=== PATIENT | male | born 1965 | race Caucasian/White ===

== ENCOUNTER 2024-10-04 13:02 | Emergency (ER) | payer OTHER, SELFPAY ==
[2024-10-04 13:06] VITALS: BP 133/96
[2024-10-04 13:10] VITALS: BP 132/96
[2024-10-04 14:00] VITALS: BP 126/92
[2024-10-04 14:03] VITALS: BP 130/91
[2024-10-04] MEDS: NSS 1000 IV (14:16)
--- NOTE | 2024-10-04 14:16 | ED.GENMED ---
History of Present Illness
<RUBY Bergeron - Last Filed: 10/04/24 17:48>
General
Chief Complaint: Cold/Flu/URI Symptoms
Source: patient and ambulance crew
Exam Limitations: none
Time Seen by Provider: 10/04/24 13:08
Nursing documentation reviewed up to this point in time: agreed with
History of Present Illness
History of Present Illness:
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 He tells me they thought he was' off.' He does report he was late to class today and may not have set his alarm. He tells me they were not
sure if he was under the influence. He reports he drank a gifty last night. He does drink alcohol every other night and admits to drinking scotch when he does.
He complains of feeling very tired but has no other physical complaints. He was hospitalized in [place] September 26 to July 29 after syncope /GI bleed. He reports he had 3 units of blood at the time and he believes his discharge hemoglobin
was 9.6. He was told the GI bleed was caused from stress in combination of steroids which she takes for neuropathy
Patient denies any dark or black stools. He denies any abdominal pain chest pain fever chills.
Patient is not on chronic narcotics. He does not smoke.
Review of Systems
<RUBY Bergeron - Last Filed: 10/04/24 17:48>
Review of Systems
Allergies reviewed?: Yes
All Other Systems: ROS reviewed and negative except as documented in HPI and ROS
Constitutional: Reports fatigue; Denies fever or chills
Respiratory: Reports no symptoms
Cardiac: Reports no symptoms
ABD/GI: Reports no symptoms
: Reports no symptoms
Musculoskeletal: Reports no symptoms
Neurological: Reports no symptoms
Endocrine: Reports no symptoms
Hematologic/Lymphatic: Reports no symptoms
Psychiatric: Reports no symptoms
Phy Exam
<RUBY Bergeron - Last Filed: 10/04/24 17:48>
General Physical Exam
General Presentation: no apparent distress
General age: appears stated age
General Skin: warm and dry
General Habitus: normal
General Mental: alert
General Hydration: appears well hydrated
ENT Exam
ENT Exam: EOMI and neck supple
Cardiovascular Exam
Cardiovascular Exam: regular rate/rhythm, no murmur and normal peripheral pulses
Pulmonary Exam
Pulmonary Exam: lungs clear and no respiratory distress
Neurological Exam
Neurological Exam: alert, oriented x3, no motor deficits and no sensory deficits
Dulce Coma Scale
Eye Opening: Spontaneous
Verbal Response: Oriented
Motor Response: Obeys Commands
GCS Total Score: 15
Cerebellar
Cerebellar Function: normal finger to nose
Musculoskeletal Exam
Musculoskeletal Exam: full ROM
Skin Exam
Skin Exam: normal color and warm/dry
Psychiatric Exam
Psychiatric Exam: normal mood/affect
Course
<RUBY Bergeron - Last Filed: 10/04/24 17:48>
Orders/Labs/Results
Orders:
Orders
10/04/24 14:00
0.9% Sodium Chloride 1000 ml [Nss] 1,000 ml IV BOLUS
10/04/24 14:05
Alcohol Urgent
Complete Blood Count/With Diff Urgent
Comprehensive Metabolic Panel Urgent
Lipase Urgent
TSH Reflex To Free T4 Urgent
Comment: ADD ON
Vitamin D, 25-Oh Urgent
Influenza A+B Rapid Molecular Urgent
JIMI Source: Nasal Swab
Specimen Description:
10/04/24 14:06
COVID-19 Antigen Urgent
Source: Nasal Swab
10/04/24 14:53
Urinalysis Reflex To Culture Urgent
Date Specimen was Collected: 10/04/24
Time Specimen was Collected: 14:00
10/04/24 15:06
Calcium Gluconate 1,000 mg IV NOW STA
10/04/24 15:07
Add On- LAB Urgent
Tests Added?: tsh w/ reflexive t4
10/04/24 15:19
Add On- LAB Urgent
Tests Added?: Vitamin D level
Abnormal Lab Results
10/04/24
14:05
RBC 3.15 L 10^6/uL
(4.70-6.10)
Hgb 10.2 L g/dL
(13.0-18.0)
Hct 29.7 L %
(39.0-52.0)
MCV 94.3 H fL
(80.0-94.0)
MCH 32.4 H pg
(27.0-31.0)
RDW 15.9 H %
(11.5-14.5)
Abs Immat Gran (auto) 0.1 H 10^3/uL
(0-0.05)
Absolute Lymphs (auto) 0.7 L 10^3/uL
(1.2-3.4)
Immature Gran % 1.4 H %
(0-0.5)
Neutrophils % 79.1 H %
(42.2-75.2)
Lymphocytes % 9.7 L %
(20.5-51.1)
Chloride 108 H mmol/L
(98-107)
Calcium 6.8 L* mg/dl
(8.4-10.2)
ALT 52 H U/L
(0-50)
Total Protein 5.0 L g/dl
(6.3-8.2)
Albumin 2.9 L g/dl
(3.5-5.0)
Vitamin D 25-Hydroxy 20.3 L ng/mL
(30-80)
10/04/24 14:05
10/04/24 14:05
Vital Signs
Initial and Last Documented VS:
Initial Vital Signs
Pulse Resp BP Pulse Ox
102 15 133/96 99
10/04/24 13:06 10/04/24 13:06 10/04/24 13:06 10/04/24 13:06
Last Documented Vital Signs
Temp Pulse Resp BP Pulse Ox
99.5 F 81 16 116/79 97
10/04/24 13:10 10/04/24 16:15 10/04/24 16:15 10/04/24 16:00 10/04/24 16:15
Shipfitter Helper consulted with Physician
Shipfitter Helper consulted with physician?: Yes
Name of Physician Consulted: DR Walters
<Rosibel Walters, DO - Last Filed: 10/04/24 15:50>
Orders/Labs/Results
Orders:
Orders
10/04/24 14:00
0.9% Sodium Chloride 1000 ml [Nss] 1,000 ml IV BOLUS
10/04/24 14:05
Alcohol Urgent
Complete Blood Count/With Diff Urgent
Comprehensive Metabolic Panel Urgent
Lipase Urgent
TSH Reflex To Free T4 Urgent
Comment: ADD ON
Vitamin D, 25-Oh Urgent
Influenza A+B Rapid Molecular Urgent
JIMI Source: Nasal Swab
Specimen Description:
10/04/24 14:06
COVID-19 Antigen Urgent
Source: Nasal Swab
10/04/24 14:53
Urinalysis Reflex To Culture Urgent
Date Specimen was Collected: 10/04/24
Time Specimen was Collected: 14:00
10/04/24 15:06
Calcium Gluconate 1,000 mg IV NOW STA
10/04/24 15:07
Add On- LAB Urgent
Tests Added?: tsh w/ reflexive t4
10/04/24 15:19
Add On- LAB Urgent
Tests Added?: Vitamin D level
Abnormal Lab Results
10/04/24
14:05
RBC 3.15 L 10^6/uL
(4.70-6.10)
Hgb 10.2 L g/dL
(13.0-18.0)
Hct 29.7 L %
(39.0-52.0)
MCV 94.3 H fL
(80.0-94.0)
MCH 32.4 H pg
(27.0-31.0)
RDW 15.9 H %
(11.5-14.5)
Abs Immat Gran (auto) 0.1 H 10^3/uL
(0-0.05)
Absolute Lymphs (auto) 0.7 L 10^3/uL
(1.2-3.4)
Immature Gran % 1.4 H %
(0-0.5)
Neutrophils % 79.1 H %
(42.2-75.2)
Lymphocytes % 9.7 L %
(20.5-51.1)
Chloride 108 H mmol/L
(98-107)
Calcium 6.8 L* mg/dl
(8.4-10.2)
ALT 52 H U/L
(0-50)
Total Protein 5.0 L g/dl
(6.3-8.2)
Albumin 2.9 L g/dl
(3.5-5.0)
Vitamin D 25-Hydroxy 20.3 L ng/mL
(30-80)
10/04/24 14:05
10/04/24 14:05
Vital Signs
Initial and Last Documented VS:
Initial Vital Signs
Pulse Resp BP Pulse Ox
102 15 133/96 99
10/04/24 13:06 10/04/24 13:06 10/04/24 13:06 10/04/24 13:06
Last Documented Vital Signs
Temp Pulse Resp BP Pulse Ox
99.5 F 81 16 116/79 97
10/04/24 13:10 10/04/24 16:15 10/04/24 16:15 10/04/24 16:00 10/04/24 16:15
<RUBY Bergeron - Last Filed: 10/04/24 17:48>
MDM/Problems Addressed
MDM/Problems Addressed:
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 He reports staff reported that he seemed to be acting off patient presents awake alert no acute distress he
was recently admitted to the [facility] the end of August discharge September 28 for syncope related to GI bleed(it was thought caused by stress and steroid combination).
Patient however d normal at 7.0. He denies any black or dark stools. He denies any recent fever or chills. He simply feels tired. He presents awake alert no acute distress temp is 99.5. He denies any recent cough cold symptoms. His white count
is 10.2. He has no complaints of headache he has a normal neurologic exam no meningismus nontoxic-appearing.
Chemistry reviewed show normal kidney function low calcium however at 6.8 he was told that in the past his vitamin D level was low. This was added on, his albumin is also low. His lipase is normal his UA is negative.
He felt that maybe they thought he was under the influence of something but he denies any alcohol use today. He does drink every other day and drank gifty last night at dinner. His alcohol level is less than 10. Is negative for COVID-negative
for flu. He is awake alert with no neurological deficits.
Pt w/ stable VS. Evaluated by ED physician will check thyroid and plan to d/c home
Thyroid studies normal vitamin D is low at 20.3 along with his calcium as discussed above. However patient safe to discharge home with outpatient follow-up with family doctor. He is stable in no acute distress.
Chronic conditions affecting care:
History of recent GI bleed with anemia history of salivary cancer
<RUBY Bergeron - Last Filed: 10/04/24 17:48>
*Pulse Oximetry
Patient hypoxic: no
*Critical Care Note
Total Time (30-74mins, 75-104mins- exclusive of procedures): Not Applicable
ED Attending Note
<RUBY Bergeron - Last Filed: 10/04/24 17:48>
-
Portions of this chart may have been created with voice recognition software.� Occasional wrong word or��sound alike� substitutions may have occurred due to the inherent limitations of voice recognition software.
<Rosibel Walters DO - Last Filed: 10/04/24 15:50>
ED Attending Note
Patient seen and examined by attending physician: Yes
I performed the substantive portion of visit, reviewed & personally made and approve the management plan that is documented in note by myself or NIEVES.: Yes
I performed a history and physical exam of patient and discussed management with resident, I reviewed resident's note and agree with documented findings and plan of care.: Yes
ED Attending Note:
Patient seen and examined at bedside, 59-year-old male presenting to the emergency department for concern of change in behavior. 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
be feeling well, so advised that he come to the hospital. Patient on arrival without significant complaints other than feeling fatigued. He denies any drug or alcohol abuse. Notes complicated recent history in the past several months. He was
being treated with steroids for neck pain, which was complicated by development of GI bleed requiring transfusion. Does note at that time he was told he had low vitamin D. Also history of left-sided neck cancer status post resection and
chemotherapy/radiation. Patient otherwise denies chest pain, difficulty breathing, abdominal pain, fever. Denies weakness or numbness to his extremities or any acute confusion. Vital signs are normal
On exam, patient is resting comfortably, no acute distress or discomfort. Patient is awake, alert, oriented. Patient nontoxic in appearance. No focal neurologic deficits. Benign cardiac, pulmonary, abdominal exam. He does not appear to be
altered or under any type of substance. Screening laboratory analysis have been performed by nurse practitioner, relatively unremarkable with the exception of low calcium. Patient notes history of low vitamin D in the past. Will check vitamin D
level and thyroid level, notes fatigue. Otherwise hemoglobin stable, normal kidney function, no leukocytosis or suggestion of infection. No focal neurologic deficits or concern for central neurologic process. Calcium administered in the emergency
department. Likely plan for outpatient follow-up
Discharge Plan
Departure
Patient Disposition: Home (Routine Discharge)
Date of Disposition: 10/04/24
Time of Disposition: 17:46
Patient with high blood pressure during this ER visit?: Yes
Condition: Fair
Covid-19: Not Applicable
Discharge Problem:
Fatigue
Instructions: Fatigue (DC), BLOOD PRESSURE
Prescriptions:
No Action
atorvastatin [Lipitor] 20 mg Tablet
20 mg PO DAILY
cyclobenzaprine 10 mg Tablet
10 mg PO TIDPRN PRN (Reason: muscle spasms)
acetaminophen 325 mg Tablet
650 mg PO Q6H PRN (Reason: mild pain)
testosterone cypionate 100 mg/mL Oil
100 mg IM FR
sertraline 100 mg Tablet
100 mg PO DAILY
dextroamphetamine-amphetamine [Adderall] 30 mg Tablet
30 mg PO BID
pantoprazole 40 mg Tablet,Delayed Release (Dr/Ec)
40 mg PO DAILY
zolpidem 10 mg Tablet
10 mg PO HSPRN PRN (Reason: sleep)
atenolol 50 mg Tablet
50 mg PO BID
Referrals:
NONE,* [Family Provider] -
Activity Restrictions/Additional Instructions:
As discussed your vitamin D and calcium levels were low in the ER. Please increase your dietary calcium and you may take an [id number] vitamin D supplement until seen and evaluated by your family doctor. Please go over your results with your
family doctor. Your hemoglobin was 10.2. Return if any worsening of symptoms.
Interventions
Interventions:
*Risk Screen - Suicide Last Done: 10/04/24 13:10
*General Assessment Last Done: 10/04/24 13:10
*Neglect/Abuse Screening Last Done: 10/04/24 13:10
ED- Pulmonary Assessment Last Done: 10/04/24 15:18
Discharge Date and Time
Print Language: THAI
[2024-10-04 14:21] LABS: % Basophils 0.6 % (0-2); % Eosinophils 1.7 % (0-6); % Immature Granulocytes 1.4 % (0-0.5); % Lymphocytes 9.7 % (20.5-51.1); % Monocytes 7.5 % (1.7-9.3); % Neutrophils 79.1 % (42.2-75.2); Absolute Eosinophils 0.1 10^3/uL (0-0.7); Absolute Immature Granulocytes 0.1 10^3/uL (0-0.05); Absolute Lymphocytes 0.7 10^3/uL (1.2-3.4); Absolute Monocytes 0.5 10^3/uL (0.1-0.6); Absolute Neutrophils 5.6 10^3/uL (1.4-6.5); Hematocrit 29.7 % (39.0-52.0); Hemoglobin 10.2 g/dL (13.0-18.0); Mean Corp Hgb Conc. 34.3 g/dL (33.0-37.0); Mean Corpuscular Hgb 32.4 pg (27.0-31.0); Mean Corpuscular Volume 94.3 fL (80.0-94.0); Mean Platelet Volume 8.2 fL (7.4-10.4); Nucleated Red Blood Cells % 0 % (-); Platelet Count 197 10^3/uL (130-400); Red Blood Cell Count 3.15 10^6/uL (4.70-6.10); Red Cell Dist. Width 15.9 % (11.5-14.5)
[2024-10-04 14:42] LABS: COVID-19 Antigen Negative (Negative)
[2024-10-04 14:49] LABS: ALT (SGPT) 52 U/L (0-50); AST (SGOT) 32 U/L (17-59); Albumin 2.9 g/dl (3.5-5.0); Alcohol < 10 mg/dl; Alkaline Phosphatase 57 U/L (38-126); Blood Urea Nitrogen 17 mg/dl (9-20); Calcium 6.8 mg/dl (8.4-10.2); Carbon Dioxide 22 mmol/L (22-30); Chloride 108 mmol/L (98-107); Glucose 92 mg/dl (70-99); Lipase 73 U/L (23-300); Potassium 3.6 mmol/L (3.5-5.1); Sodium 138 mmol/L (135-145); Total Bilirubin 0.5 mg/dl (0.2-1.3); eGFR > 60.00
[2024-10-04 15:03] LABS: Urine Albumin Negative (Neg - Trace); Urine Bilirubin Negative (Negative); Urine Character Clear (Clear); Urine Color Yellow; Urine Glucose Negative (Negative); Urine Ketone Negative (Negative); Urine Leukocyte Negative (Negative); Urine Nitrite Negative (Negative); Urine Occult Blood Negative (Negative); Urine Urobilinogen Negative (Neg - 1+); Urine pH 6.5 (5.0-9.0)
[2024-10-04] MEDS: CALCIUM GLUCONATE 1000 MG IV (15:13)
[2024-10-04 15:16] VITALS: BP 151/79
[2024-10-04 16:00] VITALS: BP 116/79
[2024-10-04 17:03] LABS: Vitamin D, 25-OH*** 20.3 ng/mL (30-80)
[2024-10-04 17:16] LABS: TSH Reflex To Free T4 3.69 uIU/ml (0.47-4.68)
== END 2024-10-04 18:08 | disposition home or self-care (01) ==
LOC: EMR 13:02
PROVIDERS: Nurse Practitioner; EMERGENCY PHYSICIAN Student in an Organized Health Care Education/Training Program
DX: R53.83 Other fatigue (principal); Z85.89 Personal history of malignant neoplasm of other organs and systems; G62.9 Polyneuropathy, unspecified; I10 Essential (primary) hypertension; Z92.3 Personal history of irradiation; R79.89 Other specified abnormal findings of blood chemistry; Z86.2 Personal history of diseases of the blood and blood-forming organs and certain disorders involving the immune mechanism
CPT/HCPCS: 96374; 99284; 80053; 81003; 82077; 82306; 83690; 84443; 85025; 87502; 87811